=== PATIENT | male | born 1960 | race Caucasian/White ===

== ENCOUNTER 2022-10-14 20:11 | Emergency (ER) | payer BC ==
[2022-10-14] MEDS ORDERED: EPINEPHrine 1 MG/ML SDV IM ONE (20:15)
[2022-10-14] MEDS ORDERED: Sodium Chloride 0.9% 10 ML Syringe FLUSH PRN (20:15)
[2022-10-14] MEDS ORDERED: methylPREDNISolone Sodium Succinate 125 MG/2 ML SDV IVPUSH ONE (20:15)
[2022-10-14] MEDS ORDERED: diphenhydrAMINE 50 MG/ML SDV IVPUSH ONE (20:15)
[2022-10-14] MEDS ORDERED: Famotidine 20 MG Tab PO ONE (20:16)
[2022-10-14] MEDS ORDERED: Famotidine 20 MG Tab ONE (20:20)
== END 2022-10-14 23:10 | disposition home or self-care (01) ==
LOC: JP.ED 20:11
DX: T63.451A Toxic effect of venom of hornets, accidental (unintentional), initial encounter (principal); T78.2XXA Anaphylactic shock, unspecified, initial encounter
CPT/HCPCS: 96372; 96374; 96375; 99282; A9270; J0171; J1200; J2930